=== PATIENT | male | born 1980 | race Caucasian/White ===

== ENCOUNTER 2023-02-04 21:32 | Emergency (ER) | payer OTHER ==
[~2023-02-04] VITALS: Ht 182.9 cm; Wt 97.7 kg
[2023-02-04 22:08] LABS: BASO # 0.03 K/mm3 (0.02-0.10); EOS # 0.25 K/mm3 (0.04-0.40); EOS % 4.2 % (0.0-4.0); HEMATOCRIT 42.6 % (42.0-52.0); HEMOGLOBIN 13.9 g/dL (13.5-18.0); LYMPH# 2.15 K/mm3 (1.50-4.00); MEAN CELL VOLUME 90 fl (78-100); MEAN CORPUSCULAR HEMOGLOBIN 29 pg (27-31); MEAN CORPUSCULAR HGB CONC 33 g/dL (33-37); MEAN PLATELET VOLUME 10.4 fl (7.4-10.4); MONO # 0.55 K/mm3 (0.20-0.80); NEU # 2.96 K/mm3 (1.40-6.50); PLATELET COUNT 210 K/mm3 (130-400); RED BLOOD COUNT 4.74 M/mm3 (4.20-5.60); RED CELL DISTRIBUTION WIDTH 12.8 % (11.5-14.5)
[2023-02-04 22:16] LABS: ALBUMIN 4.2 g/dL (3.5-5.0); POTASSIUM 3.9 mmol/L (3.5-5.1); SODIUM 138 mmol/L (136-145)
[2023-02-04 22:17] LABS: CALCIUM 9.6 mg/dL (8.3-10.5)
[2023-02-04 22:18] LABS: GLUCOSE 104 mg/dL (75-110); TOTAL PROTEIN 6.9 g/dL (6.4-8.3)
[2023-02-04 22:19] LABS: CARBON DIOXIDE 24 mmol/L (22-29)
[2023-02-04 22:20] LABS: TOTAL BILIRUBIN 0.4 mg/dL (0.2-1.2)
[2023-02-04 22:21] LABS: PROTHROMBIN TIME 11.1 SECONDS (9.0-12.0)
[2023-02-04 22:24] LABS: AST-SGOT 22 U/L (5-34)
[2023-02-04 22:25] LABS: ALT/SGPT 22 U/L (0-55)
[2023-02-04 23:05] VITALS: BP 112/76
== END 2023-02-04 23:05 | disposition home or self-care (01) ==
LOC: ED 21:32
PROVIDERS: Physician Assistant
DX: M79.604 Pain in right leg (principal); Z28.310 Unvaccinated for COVID-19
CPT/HCPCS: J1650

== ENCOUNTER → 2023-05-17 | Outpatient (CLI) | payer OTHER ==
[2023-05-17 17:09] LABS: BASO # 0.02 K/mm3 (0.02-0.10); EOS # 0.19 K/mm3 (0.04-0.40); EOS % 3.1 % (0.0-4.0); HEMATOCRIT 48.3 % (42.0-52.0); HEMOGLOBIN 15.8 g/dL (13.5-18.0); LYMPH# 0.83 K/mm3 (1.50-4.00); MEAN CELL VOLUME 89 fl (78-100); MEAN CORPUSCULAR HEMOGLOBIN 29 pg (27-31); MEAN CORPUSCULAR HGB CONC 33 g/dL (33-37); MONO # 0.57 K/mm3 (0.20-0.80); NEU # 4.45 K/mm3 (1.40-6.50); PLATELET COUNT 213 K/mm3 (130-400); RED BLOOD COUNT 5.42 M/mm3 (4.20-5.60); RED CELL DISTRIBUTION WIDTH 12.5 % (11.5-14.5); WHITE BLOOD COUNT 6.1 K/mm3 (4.8-10.8)
[2023-05-17 17:14] LABS: ALBUMIN 4.9 g/dL (3.5-5.0); SODIUM 140 mmol/L (136-145)
[2023-05-17 17:15] LABS: CALCIUM 9.8 mg/dL (8.3-10.5)
[2023-05-17 17:16] LABS: GLUCOSE 98 mg/dL (75-110)
[2023-05-17 17:17] LABS: TOTAL PROTEIN 8.4 g/dL (6.4-8.3)
[2023-05-17 17:18] LABS: CARBON DIOXIDE 30 mmol/L (22-29); TOTAL BILIRUBIN 0.4 mg/dL (0.2-1.2)
[2023-05-17 17:22] LABS: AST-SGOT 24 U/L (5-34)
[2023-05-17 17:23] LABS: ALT/SGPT 33 U/L (0-55)
[2023-05-17 17:31] LABS: TROPONIN-I < 0.030 ng/mL (0.00-0.033)
== END ==
LOC: LAB 16:48
PROVIDERS: Nurse Practitioner Family
DX: R07.9 Chest pain, unspecified (principal)

== ENCOUNTER → 2023-12-04 | Outpatient (CLI) | payer OTHER | LOC: LAB 08:18 | DX: Z13.220 Encounter for screening for lipoid disorders (principal); Z13.1 Encounter for screening for diabetes mellitus ==